=== PATIENT | female | born 1970 | race Caucasian/White ===

== ENCOUNTER 2018-09-01 13:41 | Emergency (ER) | payer MEDICAID ==
[2018-09-01 14:34] LABS: BASOPHILS # (AUTO) 0.1 10^3/uL (0.0-0.1); EOSINOPHILS # (AUTO) 0.2 10^3/uL (0.0-0.7); EOSINOPHILS % (AUTO) 1.2 %; HGB - HEMOGLOBIN 15.1 g/dL (12.0-16.0); LYMPHOCYTES # (AUTO) 4.2 10^3/uL (1.5-3.5); LYMPHOCYTES % (AUTO) 33.4 %; MEAN CORPUSCULAR HEMOGLOBIN 30.6 pg (27.0-31.0); MEAN CORPUSCULAR HGB CONC 35.7 g/dL (32.0-36.0); MEAN CORPUSCULAR VOLUME 85.8 fL (81.0-99.0); MEAN PLATELET VOLUME 6.3 fL (7.9-10.8); MONOCYTES # (AUTO) 0.8 10^3/uL (0.0-1.0); NEUTROPHILS # (AUTO) 7.4 10^3/uL (1.5-6.6); NEUTROPHILS % (AUTO) 58.4 %; PLT - PLATELET COUNT 400 10^3/uL (130-450); RED BLOOD COUNT 4.91 10^6/uL (4.20-5.40); RED CELL DISTRIBUTION WIDTH 13.3 % (12.0-15.0); WHITE BLOOD COUNT 12.7 x10^3/uL (4.8-10.8)
[2018-09-01 14:47] LABS: ALBUMIN 3.7 g/dL (3.2-5.5); ALBUMIN/GLOBULIN RATIO 1.2 (1.0-2.2); BILIRUBIN,TOTAL 0.7 mg/dL (0.2-1.0); CALCIUM 8.8 mg/dL (8.5-10.3); CREATININE 0.8 mg/dL (0.4-1.0); TOTAL PROTEIN 6.9 g/dL (6.7-8.2)
[2018-09-01 16:44] LABS: BILIRUBIN,URINE NEGATIVE (NEGATIVE); GLUCOSE, URINE (UA) 100 mg/dL (NEGATIVE); KETONES,URINE (UA) 15 mg/dL (NEGATIVE); LEUKOCYTE ESTERASE, URINE NEGATIVE (NEGATIVE); NITRITE,URINE NEGATIVE (NEGATIVE); OCCULT BLOOD,URINE LARGE (NEGATIVE); PROTEIN,URINE 100 mg/dL (NEGATIVE); UROBILINOGEN,URINE 0.2 (NORMAL) E.U./dL (NORMAL)
[2018-09-01 16:47] LABS: CLARITY,URINE CLEAR (CLEAR); HCG UR QUAL NEGATIVE
--- NOTE | 2018-09-01 16:53 | ED Physician Documentation ---
PD HPI ABD PAIN - Stated complaint Stated Complaint: SIDE PX - Chief complaint Chief Complaint: Abd Pain - History obtained from History obtained from: Patient - History of Present Illness Timing - onset: Yesterday Timing - duration: Days (2) Timing - details: Abrupt onset, Still present, Waxing and waning Quality: Aching, Sharp, Pain Location: RLQ Radiation: Right flank Improved by: Laying still. No: Eating Worsened by: Moving, Position. No: Eating, Breathing Associated symptoms: No: Fever, Nausea, Vomiting, Dysuria, Hematuria Similar symptoms before: Diagnosis (states Dx of kidney infections and renal failure. No stones in the past.) Recently seen: Not recently seen, Other (recently moved to [facility], no local provider.) Review of Systems Constitutional: denies: Fever, Chills, Myalgias Nose: denies: Rhinorrhea / runny nose, Congestion Throat: denies: Sore throat Cardiac: denies: Chest pain / pressure Respiratory: denies: Cough GI: reports: Abdominal Pain. denies: Vomiting, Diarrhea : denies: Dysuria, Frequency, Discharge Skin: denies: Rash, Lesions Musculoskeletal: reports: Back pain. denies: Neck pain Neurologic: denies: Focal weakness, Numbness Psychiatric: reports: Anxiety. denies: Depressed, Suicidal PD PAST MEDICAL HISTORY - Past Medical History Cardiovascular: None Respiratory: None Neuro: None GI: None - Present Medications Home Medications: Ambulatory Orders Medication Instructions Recorded Confirmed LORazepam [Ativan] 1 mg PO TID PRN #25 tablet 09/01/18 OLANZapine [Zyprexa] 5 mg PO BID #30 tablet 09/01/18 Oxycodone HCl/Acetaminophen 1 - 2 each PO Q6H PRN #25 tablet 09/01/18 [Percocet 5-325 mg Tablet] - Allergies Allergies/Adverse Reactions: Allergies Allergy/AdvReac Type Severity Reaction Status Date / Time atorvastatin [From Lipitor] Allergy Unknown Verified 09/01/18 13:54 naproxen Allergy Unknown Verified 09/01/18 13:54 Penicillins Allergy Unknown Verified 09/01/18 13:54 simvastatin [From Zocor] Allergy Unknown Verified 09/01/18 13:54 PD ED PE NORMAL - Vitals Vital signs reviewed: Yes - General General: Alert and oriented X 3, Well developed/nourished, Other (seems in pain and anxious. ) - HEENT HEENT: Pharynx benign - Neck Neck: Supple, no meningeal sign, No adenopathy - Cardiac Cardiac: RRR, No murmur - Respiratory Respiratory: Clear bilaterally - Abdomen Abdomen: Normal bowel sounds, Soft, Non tender, Non distended - Female Female : Deferred - Rectal Rectal: Deferred - Back Back: Other (some right CVA tenderness, some tender in muscles as well. ) Results - Vitals Vitals: Oxygen O2 Source Room air - Labs Labs: Laboratory Tests 09/01/18 09/01/18 09/01/18 14:08 14:29 14:29 WBC 12.7 H RBC 4.91 Hgb 15.1 Hct 42.2 MCV 85.8 MCH 30.6 MCHC 35.7 RDW 13.3 Plt Count 400 MPV 6.3 L Neut # (Auto) 7.4 H Lymph # (Auto) 4.2 H [place] # (Auto) 0.8 Eos # (Auto) 0.2 Baso # (Auto) 0.1 Absolute Nucleated RBC 0.00 Nucleated RBC % 0.0 Sodium 139 Potassium 3.4 L Chloride 102 Carbon Dioxide 26 Anion Gap 11.0 BUN 12 Creatinine 0.8 Estimated GFR (MDRD) 77 L Glucose 195 H Calcium 8.8 Total Bilirubin 0.7 AST 21 ALT 20 Alkaline Phosphatase 61 Total Protein 6.9 Albumin 3.7 Globulin 3.2 Albumin/Globulin Ratio 1.2 Lipase 31 Urine Color DARK YELLOW Urine Clarity CLEAR Urine pH 6.0 Ur Specific [place] >=1.030 H Urine Protein 100 H Urine Glucose (UA) 100 H Urine Ketones 15 H Urine Occult Blood LARGE H Urine Nitrite NEGATIVE Urine Bilirubin NEGATIVE Urine Urobilinogen 0.2 (NORMAL) Ur Leukocyte Esterase NEGATIVE Urine RBC 0-5 Urine WBC 0-3 Ur Squamous Epith Cells MANY Squamous H Urine Bacteria Moderate H Urine Casts 3-5 Hyaline Casts Ur Microscopic Review INDICATED Urine Culture Comments NOT INDICATED Urine HCG, Qual NEGATIVE - Rads (name of study) KUB CT Radiology: Prelim report reviewed (no noted stones nor other cause for the pain.), EMP read contemporaneously PD MEDICAL DECISION MAKING - ED course Complexity details: reviewed results (no cause for the pain seen on CT - no stones, nor divertic, etc. ), considered differential, d/w patient Departure - Departure Disposition: 01 Home, Self Care Clinical Impression: Acute right flank pain Anxiety disorder Qualifiers: Anxiety disorder type: generalized anxiety disorder Qualified Code(s): F41.1 - Generalized anxiety disorder Condition: Stable Record reviewed to determine appropriate education?: Yes Instructions: ED Stress React, ED Flank Pain Uncertain Cause Prescriptions: LORazepam [Ativan] 1 mg PO TID PRN #25 tablet PRN Reason: Anxiety OLANZapine [Zyprexa] 5 mg PO BID #30 tablet Oxycodone HCl/Acetaminophen [Percocet 5-325 mg Tablet] 1 - 2 each PO Q6H PRN #25 tablet PRN Reason: pain Comments: Continue your current antibiotic. There are no signs of stones abscesses or tumors on your CT scan. The flank pain may be some pressure in the kidney or may be muscular. Use some ibuprofen if needed. Add Percocet if needed for pain. For your anxiety, use the olanzapine and Ativan that you had previously taken in the past. Follow-up with your new clinic appointment on the as planned. Also follow-up with [facility] regarding counseling. Discharge Date/Time: 09/01/18 20:00
[2018-09-01 16:54] LABS: BACTERIA,URINE Moderate /HPF (None Seen); RBC,URINE 0-5 /HPF (0-5); SQUAMOUS EPITHELIAL CELL,UR MANY Squamous (<= Few)
[2018-09-01 16:55] LABS: CASTS, URINE 3-5 Hyaline Casts /LPF
[2018-09-01] MEDS ORDERED: HYDROcod/ACETAM 5/325 MG TABLET PO STA (17:36)
[2018-09-01] MEDS ORDERED: LORazepam 0.5 MG TABLET PO STA ×2 (17:36→19:20)
--- NOTE | 2018-09-01 19:28 | CT Report ---
Reason: right flank pain; blood in urine Procedure Date: 09/01/2018 Accession Number: [id number] / [id number] Procedure: CT - KUB CPT Code: FULL RESULT: EXAM: CT ABDOMEN AND PELVIS (CT KUB) EXAM DATE: 09/01/2018 07:05 PM. CLINICAL HISTORY: Right flank pain; blood in urine. COMPARISONS: None. TECHNIQUE: Routine axial helical CT imaging was performed through the abdomen and pelvis without IV contrast. Reconstructions: Coronal and sagittal. In accordance with CT protocol optimization, one or more of the following dose reduction techniques were utilized for this exam: automated exposure control, adjustment of mA and/or KV based on patient size, or use of iterative reconstructive technique. FINDINGS: Lung Bases: Unremarkable. Right Kidney/Ureter: No stones, hydronephrosis, or hydroureter. No perinephric fat stranding. Left Kidney/Ureter: No stones, hydronephrosis, or hydroureter. No perinephric fat stranding. Other Solid Organs: Noncontrast images of the solid organs are grossly unremarkable. Gallbladder/Bile Ducts: Surgically absent. No ductal dilation. Peritoneal Cavity: No free fluid, free air or nate adenopathy. Mild colonic diverticulosis. Bowel otherwise is grossly unremarkable. Pelvic Organs: No bladder stones or wall thickening. Noncontrast images of the visualized pelvic organs are unremarkable. Vasculature: Unremarkable. Other: None. IMPRESSION: No urinary tract stones or obstruction. RADIA
[2018-09-01 19:38] VITALS: BP 132/71
[2018-09-01] MEDS ORDERED: OLANZapine ODT 5 MG TABLET TL ONE (19:42)
== END 2018-09-01 20:00 | disposition home or self-care (01) ==
LOC: ED 13:41
DX: R10.9 Unspecified abdominal pain (principal); F41.1 Generalized anxiety disorder
CPT/HCPCS: 36415; 74176; 80053; 81001; 81025; 83690; 85025; 99283; A9270; 81003; 87086

== ENCOUNTER 2018-09-21 18:04 | Emergency (ER) | payer MEDICAID ==
--- NOTE | 2018-09-21 20:45 | ED Physician Documentation ---
History of Present Illness - Stated complaint Stated Complaint: ANXIETY - Chief complaint Chief Complaint: General - History obtained from History obtained from: Patient - History of Present Illness Timing: Chronic Pain level now: 0 Improved by: no ameliorating factors Worsened by: no exacerbating factors - Additonal information Additional information: Patient c/o generalized anxiety. She says she is out of both her alprazolam and olanzepine. She recently moved from [place], has upcoming appointment with local medical practice this (3 days from now). She was provided prescriptions for both of these medications 09/01/18 from this ED when she was evaluated for pain-related problem. Review of Systems Cardiac: reports: Reviewed and negative Respiratory: reports: Reviewed and negative GI: reports: Reviewed and negative Psychiatric: reports: Anxiety. denies: Depressed, Suicidal, Homicidal, Hallucinations, Delusions PD PAST MEDICAL HISTORY - Past Medical History Past Medical History: Yes Cardiovascular: None Respiratory: None Neuro: None Endocrine/Autoimmune: Type 2 diabetes GI: None Psych: Anxiety, Bipolar disorder, Post traumatic stress disorder Musculoskeletal: Osteoarthritis - Past Surgical History Past Surgical History: Yes General: Cholecystectomy - Present Medications Home Medications: Ambulatory Orders Medication Instructions Recorded Confirmed LORazepam [Ativan] 1 mg PO TID PRN #25 tablet 09/01/18 OLANZapine [Zyprexa] 5 mg PO BID #30 tablet 09/01/18 Oxycodone HCl/Acetaminophen 1 - 2 each PO Q6H PRN #25 tablet 09/01/18 [Percocet 5-325 mg Tablet] LORazepam [Lorazepam] 1 mg PO TID #15 tablet 09/21/18 OLANZapine [Olanzapine] 5 mg PO BID #15 tablet 09/21/18 - Allergies Allergies/Adverse Reactions: Allergies Allergy/AdvReac Type Severity Reaction Status Date / Time atorvastatin [From Lipitor] Allergy Unknown Verified 09/01/18 13:54 naproxen Allergy Unknown Verified 09/01/18 13:54 Penicillins Allergy Unknown Verified 09/01/18 13:54 simvastatin [From Zocor] Allergy Unknown Verified 09/01/18 13:54 - Social History Does the pt smoke?: No Smoking Status: Never smoker Does the pt drink ETOH?: No Does the pt have substance abuse?: Yes - Immunizations Immunizations are current?: Yes - POLST Patient has POLST: No PD ED PE NORMAL - Vitals Vital signs reviewed: Yes - General General: Alert and oriented X 3, No acute distress, Well developed/nourished - Cardiac Cardiac: RRR, No murmur - Respiratory Respiratory: No respiratory distress, Clear bilaterally - Neuro Neuro: Alert and oriented X 3, Normal speech Eye Opening: Spontaneous Motor: Obeys Commands Verbal: Oriented GCS Score: 15 - Psych Psych: Other (irritated, poor eye contact) Results - Vitals Vitals: Vital Signs - 24 hr 09/21/18 09/21/18 09/21/18 18:15 20:06 21:07 Temperature 36.8 C Heart Rate 95 89 Respiratory 18 17 17 Rate Blood Pressure 151/79 H 158/82 H O2 Saturation 99 97 Oxygen O2 Source Room air PD MEDICAL DECISION MAKING - ED course Complexity details: considered differential, d/w patient ED course: JULY form indicates monthly prescriptions for Tramadol from a doctor that patient says is her [place] prescriber. These show tramadol rx March through August 2018, inclusive, including a tramadol rx filled 2 days after she was seen in this ED last month. I reviewed this record with her, with the point being that I do not see any filled prescriptions for lorazepam on this record (which clearly shows at least the past 5 months) except for the one provided by this ED. She was irritated and impatient during this discussion, says she doesn't live locally but has no explanation when I point out that the other (tramadol) prescriptions were from a [place] office. I expressed my concern that I do not have a way to confirm that she is indeed supposed to be taking lorazepam on a daily basis per her primary care provider, but, as I also do not have information that suggests misuse or diversion of this medication at this time, I explained that I would be willing to provide the rx for the lorazepam and olanzepine. It is encouraging that she has upcoming appointments later this week. Departure - Departure Disposition: 01 Home, Self Care Clinical Impression: Medication refill Anxiety disorder Qualifiers: Anxiety disorder type: unspecified anxiety disorder Qualified Code(s): F41.9 - Anxiety disorder, unspecified Condition: Good Instructions: BENZODIAZEPINES, General, ED Panic Attack Follow-Up: [facility] [Provider Group] Prescriptions: LORazepam [Lorazepam] 1 mg PO TID #15 tablet OLANZapine [Olanzapine] 5 mg PO BID #15 tablet Comments: You need to follow up with your doctor for regularly prescribed medications. This is particularly important for regularly prescribed medications that are considered "controlled dangerous substances", such as lorazepam. This is the second such prescription you are being provided from this emergency department in the past month. If you are supposed to be on this medication on a regular basis, they should be provided by your primary care physician and not the emergency department. Discharge Date/Time: 09/21/18 21:10
[2018-09-21] MEDS ORDERED: LORazepam 0.5 MG TABLET PO STA (21:00)
[2018-09-21] MEDS ORDERED: OLANZapine ODT 5 MG TABLET TL STA (21:00)
[2018-09-21 21:10] VITALS: BP 158/82
== END 2018-09-21 21:10 | disposition home or self-care (01) ==
LOC: ED 18:04
DX: Z76.0 Encounter for issue of repeat prescription (principal); F41.9 Anxiety disorder, unspecified; E11.9 Type 2 diabetes mellitus without complications
CPT/HCPCS: 99283; A9270